=== PATIENT | male | born 1960 | race Caucasian/White ===

== ENCOUNTER 2017-06-26 20:57 | Emergency (ER) | payer MEDICARE, OTHER ==
--- NOTE | 2017-06-26 22:33 | RAD ---
AP VIEW OF THE CHEST: 06/26/17 INDICATION: Intermittent chest pain. COMPARISON: Prior exam dated September 14, 2009. FINDINGS: The lungs are clear. There is a new endovascular stent in the region of the SVC. There is an ACDF carol te at C6-7. Heart size is normal. The left costophrenic angle is excluded. No pneumothorax is evident . IMPRESSION: 1. No acute abnormality. 2. Limitation to the exam as above. POS: [facility]
[2017-06-26 23:00] LABS: #Basophils 0.1 thou/uL (0.0-0.2); #Eosinphils 0.1 thou/uL (0.0-0.7); #Lymphocytes 1.8 thou/uL (1.20-3.40); #Neutrophils 5.6 thou/uL (1.40-6.50); %Eosinophils 1.2 % (0.0-10.0); %Neutrophils 64.8 % (42.0-75.0); Hemoglobin 18.9 g/dL (14.0-18.0); Mean Corpuscular HGB CONC 32.9 g/dL (32.0-36.0); Mean Corpuscular Hemoglobin 31.4 pg (27.0-31.0); Mean Corpuscular Volume 95.5 fl (80.0-94.0); Mean Platelet Volume 7.7 fL (7.4-10.4); Platelet Count 220 thou/uL (130-400); RBC Distribution Width 13.8 % (11.5-14.5); Red Blood Cell (RBC) Count 6.03 mill/uL (4.70-6.10); White Blood Cell (WBC) Count 8.6 thou/uL (4.8-10.8)
[2017-06-26 23:06] LABS: Prothrombin Time 50.3 SEC (12.0-14.7)
[2017-06-26 23:14] LABS: INR-International Normal Ratio 5.1
[2017-06-26 23:23] LABS: ALT (SGPT) 27 U/L (8-55); AST (SGOT) 29 U/L (5-34); Albumin 4.3 g/dL (3.5-5.0); Alkaline Phosphatase 84 U/L (40-150); Anion Gap 14 mmol/L (10-20); BUN (Urea Nitrogen) 9 mg/dL (8.4-25.7); Bilirubin, Total 0.5 mg/dL (0.2-1.2); Calc. Creatinine Clearance 0 mL/min (70-130); Calcium 9.4 mg/dL (7.8-10.44); Carbon Dioxide 23 mmol/L (22-29); Chloride 103 mmol/L (98-107); Estimated GFR-MDRD Greater than 90; Globulin 3.2 g/dL (2.4-3.5); Glucose 103 mg/dL (70-105); Lipase 14 U/L (8-78); Potassium 4.6 mmol/L (3.5-5.1); Protein, Total 7.5 g/dL (6.0-8.3); Sodium 135 mmol/L (136-145)
[2017-06-26 23:24] LABS: CKMB 1.2 ng/mL (0-6.6); Troponin I Less than 0.010 ng/mL (< 0.028)
[2017-06-26 23:26] LABS: D-Dimer Test Less than 0.27 *mcg/mL (0.27-0.43)
== END 2017-06-27 01:15 | disposition home or self-care (01) ==
LOC: ERS 20:57
DX: R07.89 Other chest pain (principal); I10 Essential (primary) hypertension; F32.9 Major depressive disorder, single episode, unspecified; Z87.891 Personal history of nicotine dependence; Z86.73 Personal history of transient ischemic attack (TIA), and cerebral infarction without residual deficits; Z79.01 Long term (current) use of anticoagulants; Z79.899 Other long term (current) drug therapy
CPT/HCPCS: 36415; 71045; 80053; 82553; 83690; 83880; 84443; 84484; 85025; 85379; 85610; 93005; 96360; 96361

== ENCOUNTER 2017-08-19 09:09 | Outpatient (CLI) | payer MEDICARE, MEDICAID ==
--- NOTE | 2017-08-19 12:30 | ULT ---
BILATERAL UPPER EXTREMITY VASCULAR ULTRASOUND FOR DIALYSIS ACCESS MAPPING: Date: 08-19-17 Comparison: None. History: 56-year-old male in need of dialysis access, venous insufficiency, SVC syndrome. Technique: Multiplanar grayscale sonographic imaging of the vascular structures of the bilateral uppe r extremities obtained as described above. Images include color flow and spectral analysis. FINDINGS: Bilateral internal jugular veins, subclavian veins, and axillary veins are patent. The cephalic and basilic vein demonstrate patency bilaterally. RIGHT UPPER EXTREMITY BRACHIAL ARTERY: 5.4 mm RADIAL ARTERY: 2.9 mm ULNAR ARTERY: 2.8 mm CEPHALIC VEIN Proximal Arm: 2.0 mm Mid Arm: 2.2 mm Distal Arm: 2.0 mm Antecubital Fossa: 1.3 mm Proximal Forearm: 2.2 mm Mid Forearm: 1.7 mm Distal Forearm: 1.9 mm BASILIC VEIN Proximal Arm: 5.1 mm Mid Arm: 4.6 mm Distal Arm: 5.4 mm Antecubital Fossa: 2.1 mm Proximal Forearm: 1.6 mm Mid Forearm: 1.0 mm Distal Forearm: 1.0 mm LEFT UPPER EXTREMITY BRACHIAL ARTERY: 5.1 mm RADIAL ARTERY: 2.6 mm ULNAR ARTERY: 1.6 mm CEPHALIC VEIN Proximal Arm: 4.6 mm Mid Arm: 1.1 mm Distal Arm: 2.0 mm Antecubital Fossa: 1.2 mm Proximal Forearm: 1.7 mm Mid Forearm: 1.5 mm Distal Forearm: 0.9 mm BASILIC VEIN Proximal Arm: 4.7 mm Mid Arm: 1.7 mm Distal Arm: 4.0 mm Antecubital Fossa: 4.0 mm Proximal Forearm: 3.6 mm Mid Forearm: 2.4 mm Distal Forearm: 2.1 mm IMPRESSION: Vascular ultrasound for vein mapping as above. POS: [facility]
== END 2017-08-19 09:10 | disposition home or self-care (01) ==
LOC: ULT 09:09
PROVIDERS: ATTEND Surgery
DX: Z01.818 Encounter for other preprocedural examination (principal); I87.2 Venous insufficiency (chronic) (peripheral)
CPT/HCPCS: 93970; G0365

== ENCOUNTER → 2017-08-27 | Day surgery (SDC) | payer MEDICARE, MEDICAID ==
--- NOTE | 2017-08-27 12:48 | SPC ---
RIGHT EXTREMITY VENOGRAM: HISTORY: The patient has known SVC syndrome. The patient is scheduled for MediPort catheter placement. Evalu ation is requested to assess the patency of the superior vena cava, status post stent placement. FINDINGS: Technically successful right upper extremity venogram. The brachial vein was cannulated. Contrast o pacifies a normal-appearing brachial vein, axillary vein, and subclavian vein. There is mild stenosi s of the right brachiocephalic vein. No evidence of collaterals. Contrast opacifies and flows brisk ly through the stented superior vena cava. No significant stenosis. IMPRESSION: 1. Normal right upper extremity venogram. There is mild narrowing of the right brachiocephalic vein without collateral flow. 2. Superior vena cava that has been stented is patent. EXPOSURE: 1.1 minutes. [id number] mGy*^cm2. POS: [facility]
== END ==
LOC: RAD 09:00
PROVIDERS: ATTEND Surgery
DX: I87.1 Compression of vein (principal)
CPT/HCPCS: 36005; 76942

== ENCOUNTER 2017-09-08 08:11 | Day surgery (SDC) | payer MEDICARE, MEDICAID ==
[2017-09-07 15:15] VITALS: BMI 32.5
[2017-09-08 10:18] LABS: #Basophils 0.1 thou/uL (0.0-0.2); #Eosinphils 0.2 thou/uL (0.0-0.7); #Neutrophils 4.9 thou/uL (1.40-6.50); %Basophils 1.2 % (0.0-1.0); %Eosinophils 2.9 % (0.0-10.0); %Monocytes 12.1 % (0.0-10.0); %Neutrophils 59.7 % (42.0-75.0); Hemoglobin 18.4 g/dL (14.0-18.0); Mean Corpuscular HGB CONC 33.3 g/dL (32.0-36.0); Mean Corpuscular Hemoglobin 32.2 pg (27.0-31.0); Mean Corpuscular Volume 96.7 fl (80.0-94.0); Mean Platelet Volume 7.4 fL (7.4-10.4); Platelet Count 203 thou/uL (130-400); RBC Distribution Width 11.7 % (11.5-14.5); Red Blood Cell (RBC) Count 5.71 mill/uL (4.70-6.10); White Blood Cell (WBC) Count 8.3 thou/uL (4.8-10.8)
[2017-09-08 10:37] LABS: Anion Gap 12 mmol/L (10-20); BUN (Urea Nitrogen) 4 mg/dL (8.4-25.7); Calc. Creatinine Clearance 116 mL/min (70-130); Calcium 8.9 mg/dL (7.8-10.44); Carbon Dioxide 23 mmol/L (22-29); Chloride 106 mmol/L (98-107); Estimated GFR-MDRD 78; Glucose 78 mg/dL (70-105); Potassium 4.3 mmol/L (3.5-5.1); Sodium 137 mmol/L (136-145)
[2017-09-08] MEDS ORDERED: Clindamycin/D5W 900 mg/50 ml Premix Bag ONE (11:04)
[2017-09-08] MEDS ORDERED: Levofloxacin 500 mg/D5W 100 ml Premix Bag ONE (11:04)
[2017-09-08] MEDS ORDERED: Bupivacaine/Epinephrine 0.25% 30 ML VIAL ONE (11:13)
[2017-09-08] MEDS ORDERED: Lidocaine 2% 10 ML INJ ONE (11:13)
[2017-09-08] MEDS ORDERED: Midazolam HCl 2 mg/2 ml Vial ONE (11:14)
[2017-09-08] MEDS ORDERED: Fentanyl 100 MCG/2 ML VIAL ONE (11:14)
[2017-09-08] MEDS ORDERED: PROPOFOL 200 MG/20 ML VIAL ONE (11:21)
[2017-09-08] MEDS ORDERED: ePHEDrine/0.9% NaCl/PF SYRINGE 50 mg/10 ml ONE (11:21)
[2017-09-08] MEDS ORDERED: Lidocaine 1% PF 5 ML VIAL ONE (11:21)
--- NOTE | 2017-09-08 13:55 | RAD ---
PORTABLE CHEST: HISTORY: Mediport placement. COMPARISON: 06/26/2017 FINDINGS: Heart size is enlarged. A stent, which appears to be in the superior vena cava, is noted. A right-s ided Mediport catheter has been placed. The catheter tip overlies the stent. No signs of pneumothor ax. IMPRESSION: 1. Right-sided Mediport catheter overlying the superior vena cava. No signs of pneumothorax. 2. Cardiomegaly. POS: [facility]
--- NOTE | 2017-09-08 15:42 | RAD ---
CHEST ONE VIEW: 09/08/17 HISTORY: Mediport placement. Chest pain. COMPARISON: Earlier exam on the same date. FINDINGS: Cardiac silhouette magnified by projection. Pulmonary vasculature unremarkable. Mediastinum midline w ith aortic calcification, superior vena cava stent and a right internal jugular Mediport. Tip overlie s the superior vena cava. No evidence of pneumothorax. IMPRESSION: Right internal jugular Mediport is in good radiographic position. POS: [facility]
--- NOTE | 2017-09-16 09:46 | PDOC.OP ---
Operative Note - Operative Note Operative Note: PROCEDURE: Right internal jugular MediPort placement with fluoroscopic guidance SURGEON: Shiv Romero M.D. DATE OF PROCEDURE: 09/08/2017 PREOPERATIVE DIAGNOSIS: Inadequate peripheral IV access POSTOPERATIVE DIAGNOSIS: Inadequate peripheral IV access HISTORY: Patient with chronic pain who requires frequent sedation for procedures. He has had a Mediport for this purpose almost 20 years. His most recent Mediport was removed due to superior vena cava syndrome which has been treated with stents. His primary care doctor has requested replacement of the Mediport. He understands that he is at increased risk for thrombotic complications and recurrent superior vena cava syndrome. Preoperative venogram revealed patency of the superior vena cava but a possible slight stricture near the brachiocephalic junction on the right so recommendation was made to place the Mediport in the right internal jugular position. OPERATIVE PROCEDURE IN DETAIL: After informed consent was obtained and appropriate preoperative antibiotics were administered, the patient was taken to the operating room and placed in supine position and monitored anesthesia care was administered. The patient was then placed in Trendelenburg position and the internal jugular vein accessed easily under ultrasound guidance on the first attempt with excellent flow of dark venous non-pulsatile blood. A wire threaded easily and was confirmed to be in the superior vena cava by fluoroscopy. Local anesthesia was infused and the skin incised around the wire. Local anesthesia was infused to the skin and subcutaneous tissues of the right chest and a subcutaneous pocket developed inferiorly. A Mediport was obtained and confirmed to fit in the subcutaneous pocket. This was secured inferiorly to the pectoralis fascia with a Prolene suture, which was clamped, but not tied. The Mediport tubing was then clamped distally and tunneled from the chest incision to the right IJ access site. The dilator and sheath were then placed over the wire and the dilator and wire removed leaving the sheath in place. The clamped MediPort tubing was tunneled through the sheath, which was then split and removed leaving the MediPort tubing in place. The tubing was adjusted until the tip was confirmed by fluoroscopy to be in the superior vena cava just above the atrium. The tubing was clamped at the skin level and cut and the tubing secured to the port, which was then placed in the subcutaneous pocket. The previously placed suture was secured and two additional sutures were placed to fix the port in place within the pocket. The port was aspirated with the Dillon needle and had excellent flow of dark venous non-pulsatile blood and easily flushed without resistance. The subcutaneous tissues at both incisions were closed with a running Monocryl suture, following which the skin was closed with a running subcuticular Monocryl suture. Dermabond dressings were placed and the hub was again accessed through the skin and confirmed to easily aspirate and easily flush. The course of the catheter was confirmed by fluoroscopy to be smooth with the tip appropriately located in the superior vena cava. The patient was taken her back to the day stay unit in good condition. Estimated blood loss was minimal. There were no complications. There were no specimens.
== END 2017-09-08 15:38 | disposition home or self-care (01) ==
LOC: SDC 08:11
PROVIDERS: ATTEND Surgery
PROC: 05HM33Z Insertion of Infusion Device into Right Internal Jugular Vein, Percutaneous Approach (ICD-10-PCS; principal; 2017-09-08)
DX: Z45.2 Encounter for adjustment and management of vascular access device (principal); I87.1 Compression of vein; I10 Essential (primary) hypertension; E05.90 Thyrotoxicosis, unspecified without thyrotoxic crisis or storm; Z88.8 Allergy status to other drugs, medicaments and biological substances; Z91.011 Allergy to milk products; Z87.891 Personal history of nicotine dependence; Z79.899 Other long term (current) drug therapy
CPT/HCPCS: 36561; 71045; 76001; 80048; 85025; C1788; 36415; J1642; J1956; J2001; J2250; J2704; J3010; J3490

== ENCOUNTER 2018-04-05 08:08 | Outpatient (CLI) | payer MEDICARE, MEDICAID ==
[2018-04-05] MEDS ORDERED: Sodium Chloride 0.9% 10 ML ONE (08:59)
--- NOTE | 2018-04-05 11:30 | RAD ---
FLUOROSCOPIC GUIDED RIGHT INTERNAL JUGULAR VEIN MEDIPORT CHECK: Date: 04-05-18 History: Unable to aspirate from Mediport. FINDINGS: A [place] needle was utilized to access the Mediport prior to this procedure. The catheter was easily a spirated and flushed with saline. Total volume of approximately 12 ml of Omnipaque 300 contrast was t hen injected through the Mediport catheter. There is no extravasation of contrast seen along the Medi port catheter or surrounding the Mediport. Contrast easily flows from the tip of the catheter into th e SVC and subsequently in the right atrium. Vascular stents are seen within the SVC and the Mediport catheter extends into the stents to the level of the distal SVC. The catheter was then flushed with h epatized saline. Needle was removed. Patient tolerated the procedure well and without immediate compl ication. IMPRESSION: Right internal jugular vein Mediport catheter in place. Tip of the catheter overlies the distal SVC, and there are stents present within the SVC. The Mediport catheter is patent, and there is no extravasation of contrast along the course of the ca theter. Contrast freely flows from the tip of the catheter. The catheter is also able to be flushed a nd aspirated easily. POS: [facility]
== END 2018-04-05 08:09 | disposition home or self-care (01) ==
LOC: RAD 08:08
PROVIDERS: ATTEND Surgery
DX: I87.2 Venous insufficiency (chronic) (peripheral) (principal)
CPT/HCPCS: 36598; J1642

== ENCOUNTER 2018-04-13 14:24 | Emergency (ER) | payer MEDICARE, OTHER ==
[2018-04-13] MEDS ORDERED: cloNIDine 0.1 MG TAB ONE (14:50)
== END 2018-04-13 17:52 | disposition home or self-care (01) ==
LOC: ERS 14:24
DX: F11.23 Opioid dependence with withdrawal (principal); I10 Essential (primary) hypertension; F32.9 Major depressive disorder, single episode, unspecified; Z87.891 Personal history of nicotine dependence; Z86.73 Personal history of transient ischemic attack (TIA), and cerebral infarction without residual deficits
CPT/HCPCS: 99283

== ENCOUNTER 2020-01-05 13:19 | Outpatient (CLI) | payer MEDICARE, MEDICAID ==
--- NOTE | 2020-01-05 15:20 | CT ---
CT ABDOMEN AND PELVIS WITH IV CONTRAST: HISTORY: There is generalized abdominal pain with weight gain of 40 pounds. Multiple back surgeries. FINDINGS: The lung bases are clear. There is fatty infiltration of the liver. No hepatic mass or abnormal shauna iary ductal dilatation is seen. The patient is post cholecystectomy. The spleen, pancreas, and adre nal glands are normal. There are bilateral nonobstructing renal calculi. The largest of these measu res 5 mm in the right kidney and 5 mm in the left kidney. No free air, free fluid, or lymphadenopathy is seen in the abdomen or pelvis. The small bowel loops are not abnormally dilated. There is a stent in the inferior vena cava. Degenerative changes in the spine. An abnormal appendix is not seen. The patient is likely postop appendectomy. Clinical annabel elation is recommended. IMPRESSION: 1. Fatty liver. 2. Bilateral nonobstructing renal calculi. POS: [facility]
== END 2020-01-05 13:20 | disposition home or self-care (01) ==
LOC: BICCT 13:19 → CT 13:20
PROVIDERS: ATTEND Family Medicine
DX: R10.84 Generalized abdominal pain (principal); K76.0 Fatty (change of) liver, not elsewhere classified; N20.0 Calculus of kidney
CPT/HCPCS: 74177; 82565

== ENCOUNTER 2020-10-01 11:46 | Emergency (ER) | payer MEDICARE, MEDICAID | END 2020-10-01 14:10 | disposition home or self-care (01) | LOC: ERS 11:46 | DX: M54.5 Low back pain (principal); I10 Essential (primary) hypertension; Z86.73 Personal history of transient ischemic attack (TIA), and cerebral infarction without residual deficits; Z87.891 Personal history of nicotine dependence | CPT/HCPCS: 99281 ==

== ENCOUNTER 2021-02-04 15:12 | Inpatient (IN) | payer MEDICARE, MEDICAID ==
[~2021-02-04 15:12] MED LIST: FLU VACC QS2021-22(6MOS UP)/PF 60 MCG/0.5 ML SYRINGE IM ONE; Prevnar 13-Val Conj/PF 0.5 ML SYRINGE IM ONE
[2021-02-04 16:26] LABS: Bacteria/HPF None Seen HPF (None Seen); Bilirubin Negative (Negative); Blood, Urine Trace (Negative); Clarity Clear (Clear); Glucose, Urine (Dipstick) Normal (Negative); Ketone, Urine Trace mg/dL (Negative); Leukocyte Negative Leu/uL (Negative); Nitrite Negative (Negative); Protein, Urine (Dipstick) 30 mg/dL (Neg-Trace); RBC/HPF 0-3 HPF (0-3); Specific Gravity, Urine 1.028 (1.002-1.036); Squamous Epithelial 0-3 HPF (0-3); Urobilinogen 6 mg/dL (Less than 2); WBC/HPF 0-3 HPF (0-3); pH, Urine 5.5 (5.0-9.0)
[2021-02-04] MEDS ORDERED: Acetaminophen 325 MG TAB PO PRN (16:37)
[2021-02-04] MEDS ORDERED: Morphine 2 MG/ML VIAL SLOW IVP PRN (16:39)
[2021-02-04] MEDS ORDERED: Cefepime 2 GM VIAL ONE (16:50)
[2021-02-04] MEDS ORDERED: VANCOMYCIN 2 GRAM/400 ML BAG 2 GM in Premix Bag 1 BAG IVPB SCH (17:00)
[2021-02-04 18:12] LABS: #Lymphocytes 1.8 thou/uL (1.20-3.40); #Monocytes 1.6 thou/uL (0.11-0.59); #Neutrophils 13.2 thou/uL (1.40-6.50); %Basophils 0.1 % (0.0-1.0); %Eosinophils 0.2 % (0.0-10.0); %Lymphocytes 10.6 % (21.0-51.0); %Monocytes 9.6 % (0.0-10.0); %Neutrophils 79.6 % (42.0-75.0); Hemoglobin 14.7 g/dL (14.0-18.0); Mean Corpuscular HGB CONC 33.4 g/dL (32.0-36.0); Mean Corpuscular Hemoglobin 32.2 pg (27.0-31.0); Mean Corpuscular Volume 96.4 fL (78.0-98.0); Mean Platelet Volume 7.5 fL (7.4-10.4); Platelet Count 392 thou/uL (130-400); RBC Distribution Width 12.4 % (11.5-14.5); Red Blood Cell (RBC) Count 4.56 mill/uL (4.70-6.10); White Blood Cell (WBC) Count 16.6 thou/uL (4.8-10.8)
[2021-02-04 18:39] LABS: ALT (SGPT) 24 U/L (8-55); AST (SGOT) 20 U/L (5-34); Albumin 3.8 g/dL (3.4-4.8); Alkaline Phosphatase 91 U/L (40-110); Anion Gap 13 mmol/L (10-20); BUN (Urea Nitrogen) 16 mg/dL (8.4-25.7); Calc. Creatinine Clearance 0 mL/min (70-130); Carbon Dioxide 28 mmol/L (23-31); Chloride 101 mmol/L (98-107); Globulin 3.7 g/dL (2.4-3.5); Glucose 101 mg/dL (80-115); Potassium 3.5 mmol/L (3.5-5.1); Protein, Total 7.5 g/dL (5.8-8.1); Sodium 138 mmol/L (136-145)
[2021-02-04 19:10] LABS: INR-International Normal Ratio 1.2; PTT 38.2 sec (22.9-36.1)
[2021-02-04 19:51] VITALS: BMI 31.5
[2021-02-04] MEDS ORDERED: Vancomycin 1 GM in Premix Bag 1 BAG IVPB SCH (21:00)
[2021-02-04] MEDS: Gabapentin 300 MG CAP PO SCH (22:28)
[2021-02-04] MEDS: Ondansetron PF 4 MG/2 ML Vial IVP PRN (22:30)
[2021-02-04] MEDS: Morphine 4 MG/ML VIAL SLOW IVP PRN (22:32)
[2021-02-05] MEDS: Cefepime 2 GM in Sodium Chloride 0.9% 100 ML IVPB SCH ×3 (00:52→18:37)
[2021-02-05] MEDS: Morphine 4 MG/ML VIAL SLOW IVP PRN ×5 (03:13→23:17)
[2021-02-05 07:00] LABS: Hemoglobin 14.2 g/dL (14.0-18.0); Mean Corpuscular HGB CONC 32.7 g/dL (32.0-36.0); Mean Corpuscular Hemoglobin 31.5 pg (27.0-31.0); Mean Corpuscular Volume 96.3 fL (78.0-98.0); Mean Platelet Volume 7.5 fL (7.4-10.4); Platelet Count 356 thou/uL (130-400); RBC Distribution Width 12.2 % (11.5-14.5); White Blood Cell (WBC) Count 15.1 thou/uL (4.8-10.8)
[2021-02-05 07:10] LABS: Anion Gap 13 mmol/L (10-20); BUN (Urea Nitrogen) 16 mg/dL (8.4-25.7); Calc. Creatinine Clearance 114 mL/min (70-130); Calcium 9.7 mg/dL (7.8-10.44); Carbon Dioxide 25 mmol/L (23-31); Chloride 105 mmol/L (98-107); Glucose 95 mg/dL (80-115); Potassium 4.1 mmol/L (3.5-5.1); Sodium 139 mmol/L (136-145)
[2021-02-05] MEDS: clonazePAM 0.5 MG TAB PO SCH ×3 (08:33→20:35)
[2021-02-05] MEDS: Gabapentin 300 MG CAP PO SCH ×3 (08:33→20:35)
[2021-02-05 08:46] LABS: Band 9 % (5-11); Lymphocytes 8 % (21-51); MDiff Complete? YES; Monocytes 16 % (0-10); Neutrophil 65 % (42-75); Platelet Morphology Comment Appears Adequate; RBC Morphology Normal; Reactive Lymphocytes 2 % (0-10)
[2021-02-05] MEDS ORDERED: Enoxaparin Sodium 40 MG/0.4 ML SYRINGE SC SCH (09:00)
[2021-02-05] MEDS: Vancomycin 1.5 GRAM/300 ML BAG 1.5 GM in Premix Bag 1 BAG IVPB SCH ×2 (09:39→20:35)
[2021-02-05 11:47] LABS: SARS-CoV-2 PCR by NAA Not Detected (NotDetected)
[2021-02-06] MEDS: Cefepime 2 GM in Sodium Chloride 0.9% 100 ML IVPB SCH ×3 (01:39→16:07)
[2021-02-06] MEDS: Morphine 4 MG/ML VIAL SLOW IVP PRN ×3 (05:07→15:56)
[2021-02-06 07:16] LABS: Vancomycin, Trough 13.9 ug/mL
[2021-02-06] MEDS: VANCOMYCIN 1.75 GM/350 ML BAG 1.75 GM in Premix Bag 1 BAG IVPB SCH ×2 (08:35→20:06)
[2021-02-06] MEDS: Gabapentin 300 MG CAP PO SCH ×3 (08:35→20:07)
[2021-02-06] MEDS: clonazePAM 0.5 MG TAB PO SCH ×3 (08:35→20:07)
[2021-02-06] MEDS ORDERED: Morphine 4 MG/ML VIAL SLOW IVP PRN (10:08)
[2021-02-07] MEDS: Morphine 4 MG/ML VIAL SLOW IVP PRN ×5 (01:43→23:34)
[2021-02-07] MEDS: Cefepime 2 GM in Sodium Chloride 0.9% 100 ML IVPB SCH ×3 (01:43→17:23)
[2021-02-07 08:10] LABS: #Eosinphils 0.2 thou/uL (0.0-0.7); #Lymphocytes 1.5 thou/uL (1.20-3.40); #Monocytes 1.4 thou/uL (0.11-0.59); #Neutrophils 7.1 thou/uL (1.40-6.50); %Basophils 0.4 % (0.0-1.0); %Eosinophils 2.2 % (0.0-10.0); %Lymphocytes 14.4 % (21.0-51.0); %Monocytes 13.3 % (0.0-10.0); %Neutrophils 69.7 % (42.0-75.0); Hemoglobin 14.7 g/dL (14.0-18.0); Mean Corpuscular Hemoglobin 30.1 pg (27.0-31.0); Mean Corpuscular Volume 97.2 fL (78.0-98.0); Mean Platelet Volume 7.1 fL (7.4-10.4); Platelet Count 380 thou/uL (130-400); RBC Distribution Width 12.2 % (11.5-14.5); Red Blood Cell (RBC) Count 4.88 mill/uL (4.70-6.10); White Blood Cell (WBC) Count 10.1 thou/uL (4.8-10.8)
[2021-02-07] MEDS ORDERED: Sodium Chloride 0.9% 10 ML ONE (08:15)
[2021-02-07] MEDS ORDERED: Lidocaine 1% PF 5 ML VIAL ONE (08:15)
[2021-02-07] MEDS ORDERED: Fentanyl 100 MCG/2 ML VIAL ONE (08:15)
[2021-02-07] MEDS ORDERED: Sodium Bicarbonate 2.5 MEQ/5 ML VIAL ONE (08:15)
[2021-02-07] MEDS: Gabapentin 300 MG CAP PO SCH ×3 (08:24→20:32)
[2021-02-07] MEDS: clonazePAM 0.5 MG TAB PO SCH ×3 (08:24→20:32)
[2021-02-07 08:31] LABS: Anion Gap 12 mmol/L (10-20); BUN (Urea Nitrogen) 15 mg/dL (8.4-25.7); Calc. Creatinine Clearance 126 mL/min (70-130); Calcium 9.6 mg/dL (7.8-10.44); Carbon Dioxide 26 mmol/L (23-31); Chloride 104 mmol/L (98-107); Glucose 83 mg/dL (80-115); Potassium 3.8 mmol/L (3.5-5.1); Sodium 138 mmol/L (136-145)
[2021-02-07] MEDS: VANCOMYCIN 1.75 GM/350 ML BAG 1.75 GM in Premix Bag 1 BAG IVPB SCH ×2 (10:15→20:31)
[2021-02-07] MEDS ORDERED: Bisacodyl 10 MG SUPP PR PRN ×2 (16:51→16:54)
[2021-02-07] MEDS: Carvedilol 3.125 MG TAB PO SCH (19:00)
[2021-02-07 19:47] LABS: Vancomycin, Trough 21.6 ug/mL
[2021-02-07] MEDS: Polyethylene Glycol 3350 17 GM Packet PO SCH (20:33)
[2021-02-07] MEDS ORDERED: Polyethylene Glycol 3350 17 GM Packet PO SCH (21:00)
[2021-02-08] MEDS: Cefepime 2 GM in Sodium Chloride 0.9% 100 ML IVPB SCH ×3 (01:02→16:05)
[2021-02-08] MEDS: Morphine 4 MG/ML VIAL SLOW IVP PRN ×4 (05:15→21:14)
[2021-02-08] MEDS: Levothyroxine Sodium 75 MCG TAB PO SCH (05:25)
[2021-02-08] MEDS: Carvedilol 3.125 MG TAB PO SCH ×2 (08:08→17:02)
[2021-02-08] MEDS: Saccharomyces boulardii 250 MG CAP PO SCH (08:08)
[2021-02-08] MEDS: Gabapentin 300 MG CAP PO SCH ×3 (08:09→20:15)
[2021-02-08] MEDS: clonazePAM 0.5 MG TAB PO SCH ×3 (08:09→20:16)
[2021-02-08] MEDS: Vancomycin 1.5 GRAM/300 ML BAG 1.5 GM in Premix Bag 1 BAG IVPB SCH ×2 (08:10→20:12)
[2021-02-08 09:11] LABS: Hemoglobin 12.9 g/dL (14.0-18.0); Mean Corpuscular HGB CONC 33.2 g/dL (32.0-36.0); Mean Corpuscular Hemoglobin 32.3 pg (27.0-31.0); Mean Corpuscular Volume 97.3 fL (78.0-98.0); Mean Platelet Volume 7.2 fL (7.4-10.4); Platelet Count 341 thou/uL (130-400); RBC Distribution Width 12.2 % (11.5-14.5)
[2021-02-08 09:31] LABS: Anion Gap 11 mmol/L (10-20); BUN (Urea Nitrogen) 13 mg/dL (8.4-25.7); Calc. Creatinine Clearance 134 mL/min (70-130); Carbon Dioxide 23 mmol/L (23-31); Chloride 105 mmol/L (98-107); Glucose 123 mg/dL (80-115); Potassium 3.6 mmol/L (3.5-5.1); Sodium 135 mmol/L (136-145)
[2021-02-08 13:03] LABS: Band 10 % (5-11); Lymphocytes 6 % (21-51); MDiff Complete? YES; Monocytes 13 % (0-10); Neutrophil 63 % (42-75); Platelet Morphology Comment Appears Adequate; RBC Morphology Normal; Reactive Lymphocytes 8 % (0-10)
[2021-02-08] MEDS: Polyethylene Glycol 3350 17 GM Packet PO SCH (20:14)
[2021-02-08] MEDS: Ondansetron PF 4 MG/2 ML Vial IVP PRN (21:09)
[2021-02-09] MEDS: Cefepime 2 GM in Sodium Chloride 0.9% 100 ML IVPB SCH ×2 (01:47→08:37)
[2021-02-09] MEDS: Morphine 4 MG/ML VIAL SLOW IVP PRN ×4 (01:48→19:38)
[2021-02-09] MEDS: Levothyroxine Sodium 75 MCG TAB PO SCH (06:06)
[2021-02-09 06:59] LABS: INR-International Normal Ratio 1.1; Prothrombin Time 14.5 sec (12.0-14.7)
[2021-02-09 07:10] LABS: Anion Gap 12 mmol/L (10-20); BUN (Urea Nitrogen) 12 mg/dL (8.4-25.7); Calc. Creatinine Clearance 136 mL/min (70-130); Carbon Dioxide 22 mmol/L (23-31); Chloride 104 mmol/L (98-107); Glucose 109 mg/dL (80-115); Potassium 3.6 mmol/L (3.5-5.1); Sodium 134 mmol/L (136-145)
[2021-02-09 08:13] LABS: Hemoglobin 12.5 g/dL (14.0-18.0); Mean Corpuscular HGB CONC 31.1 g/dL (32.0-36.0); Mean Corpuscular Hemoglobin 30.4 pg (27.0-31.0); Mean Corpuscular Volume 97.7 fL (78.0-98.0); Mean Platelet Volume 7.7 fL (7.4-10.4); Platelet Count 328 thou/uL (130-400); RBC Distribution Width 12.1 % (11.5-14.5); Red Blood Cell (RBC) Count 4.12 mill/uL (4.70-6.10); White Blood Cell (WBC) Count 7.4 thou/uL (4.8-10.8)
[2021-02-09 08:27] LABS: Band 1 % (5-11); Eosinophils 5 % (0-10); Lymphocytes 18 % (21-51); MDiff Complete? YES; Monocytes 18 % (0-10); Neutrophil 57 % (42-75); Platelet Morphology Comment Appears Adequate; Vacuoles SLIGHT
[2021-02-09] MEDS: clonazePAM 0.5 MG TAB PO SCH ×3 (08:36→19:39)
[2021-02-09] MEDS: Saccharomyces boulardii 250 MG CAP PO SCH (08:36)
[2021-02-09] MEDS: Gabapentin 300 MG CAP PO SCH ×3 (08:37→19:39)
[2021-02-09] MEDS: Vancomycin 1.5 GRAM/300 ML BAG 1.5 GM in Premix Bag 1 BAG IVPB SCH ×2 (08:50→21:15)
[2021-02-09] MEDS ORDERED: Carvedilol 6.25 MG TAB PO SCH (09:00)
[2021-02-09] MEDS: Carvedilol 3.125 MG TAB PO SCH ×2 (15:00→18:14)
[2021-02-09] MEDS: Losartan 25 MG TAB PO SCH (15:02)
[2021-02-09] MEDS: Polyethylene Glycol 3350 17 GM Packet PO SCH (19:40)
[2021-02-09 19:46] LABS: Vancomycin, Trough 15.2 ug/mL
[2021-02-10] MEDS: Morphine 4 MG/ML VIAL SLOW IVP PRN ×3 (04:38→23:03)
[2021-02-10] MEDS: Levothyroxine Sodium 75 MCG TAB PO SCH (04:40)
[2021-02-10 07:18] LABS: Hemoglobin 12.8 g/dL (14.0-18.0); Mean Corpuscular HGB CONC 33.5 g/dL (32.0-36.0); Mean Corpuscular Hemoglobin 32.7 pg (27.0-31.0); Mean Corpuscular Volume 97.8 fL (78.0-98.0); Mean Platelet Volume 9.4 fL (7.4-10.4); Platelet Count 239 thou/uL (130-400); RBC Distribution Width 12.1 % (11.5-14.5); Red Blood Cell (RBC) Count 3.92 mill/uL (4.70-6.10); White Blood Cell (WBC) Count 7.9 thou/uL (4.8-10.8)
[2021-02-10 07:28] LABS: Anion Gap 12 mmol/L (10-20); BUN (Urea Nitrogen) 12 mg/dL (8.4-25.7); Calc. Creatinine Clearance 142 mL/min (70-130); Calcium 9.2 mg/dL (7.8-10.44); Carbon Dioxide 22 mmol/L (23-31); Chloride 104 mmol/L (98-107); Glucose 96 mg/dL (80-115); INR-International Normal Ratio 1.1; Prothrombin Time 14.1 sec (12.0-14.7); Sodium 134 mmol/L (136-145)
[2021-02-10] MEDS: Carvedilol 3.125 MG TAB PO SCH ×2 (08:03→16:56)
[2021-02-10] MEDS: Vancomycin 1.5 GRAM/300 ML BAG 1.5 GM in Premix Bag 1 BAG IVPB SCH ×2 (08:08→21:09)
[2021-02-10 08:11] LABS: Band 1 % (5-11); Eosinophils 4 % (0-10); Lymphocytes 20 % (21-51); MDiff Complete? YES; Monocytes 16 % (0-10); Neutrophil 59 % (42-75); Platelet Morphology Comment Appears Adequate; RBC Morphology Normal
[2021-02-10] MEDS: Gabapentin 300 MG CAP PO SCH ×3 (09:09→21:08)
[2021-02-10] MEDS: Saccharomyces boulardii 250 MG CAP PO SCH (09:09)
[2021-02-10] MEDS: clonazePAM 0.5 MG TAB PO SCH ×3 (09:10→21:09)
[2021-02-10] MEDS: Losartan 25 MG TAB PO SCH (09:11)
[2021-02-10] MEDS ORDERED: Lidocaine 1% w/Epinephrine 1:100K 20 ML VIAL IJ SCH (17:30)
[2021-02-10] MEDS: Warfarin Sodium 2 MG TAB PO SCH (17:51)
[2021-02-10] MEDS: Polyethylene Glycol 3350 17 GM Packet PO SCH (21:09)
[2021-02-11] MEDS: Levothyroxine Sodium 75 MCG TAB PO SCH (05:39)
[2021-02-11 07:47] LABS: Hemoglobin 13.3 g/dL (14.0-18.0); Mean Corpuscular HGB CONC 33.7 g/dL (32.0-36.0); Mean Corpuscular Hemoglobin 32.5 pg (27.0-31.0); Mean Corpuscular Volume 96.3 fL (78.0-98.0); Mean Platelet Volume 7.9 fL (7.4-10.4); Platelet Count 350 thou/uL (130-400); Red Blood Cell (RBC) Count 4.11 mill/uL (4.70-6.10); White Blood Cell (WBC) Count 7.9 thou/uL (4.8-10.8)
[2021-02-11 07:55] LABS: INR-International Normal Ratio 1.1; Prothrombin Time 14.3 sec (12.0-14.7)
[2021-02-11 07:58] LABS: Anion Gap 14 mmol/L (10-20); BUN (Urea Nitrogen) 11 mg/dL (8.4-25.7); Calc. Creatinine Clearance 142 mL/min (70-130); Calcium 9.1 mg/dL (7.8-10.44); Carbon Dioxide 23 mmol/L (23-31); Chloride 103 mmol/L (98-107); Glucose 93 mg/dL (80-115); Potassium 3.7 mmol/L (3.5-5.1); Sodium 136 mmol/L (136-145); Vancomycin, Trough 12.8 ug/mL
[2021-02-11] MEDS: Gabapentin 300 MG CAP PO SCH ×3 (08:55→20:30)
[2021-02-11] MEDS: Saccharomyces boulardii 250 MG CAP PO SCH (08:55)
[2021-02-11] MEDS: Losartan 25 MG TAB PO SCH (08:56)
[2021-02-11] MEDS: clonazePAM 0.5 MG TAB PO SCH ×3 (08:56→20:31)
[2021-02-11] MEDS: Carvedilol 3.125 MG TAB PO SCH ×2 (08:57→17:27)
[2021-02-11] MEDS ORDERED: Ibuprofen 800 MG TAB PO PRN (09:00)
[2021-02-11 09:21] LABS: Band 3 % (5-11); Eosinophils 2 % (0-10); Lymphocytes 20 % (21-51); MDiff Complete? YES; Monocytes 15 % (0-10); Neutrophil 59 % (42-75); Platelet Morphology Comment Appears Adequate; Polychromasia SLIGHT = 2-3 cells (100X) (0-2/hpf); Reactive Lymphocytes 1 % (0-10)
[2021-02-11] MEDS: VANCOMYCIN 1.75 GM/350 ML BAG 1.75 GM in Premix Bag 1 BAG IVPB SCH ×2 (09:45→20:32)
[2021-02-11] MEDS: Morphine 4 MG/ML VIAL SLOW IVP PRN ×2 (10:05→17:30)
[2021-02-11] MEDS ORDERED: Heparin 1,000 UNITS/ML VIAL ONE (11:27)
[2021-02-11] MEDS: Vancomycin 1.5 GRAM/300 ML BAG 1.5 GM in Premix Bag 1 BAG IVPB SCH (11:46)
[2021-02-11] MEDS: Warfarin Sodium 2 MG TAB PO SCH (17:28)
[2021-02-11] MEDS: Polyethylene Glycol 3350 17 GM Packet PO SCH (20:31)
[2021-02-12] MEDS: Morphine 4 MG/ML VIAL SLOW IVP PRN ×5 (00:17→20:28)
[2021-02-12] MEDS: Levothyroxine Sodium 75 MCG TAB PO SCH (06:09)
[2021-02-12] MEDS: Polyethylene Glycol 3350 17 GM Packet PO SCH ×2 (06:57→20:28)
[2021-02-12 07:57] LABS: INR-International Normal Ratio 1.1; Prothrombin Time 14.2 sec (12.0-14.7)
[2021-02-12] MEDS: Losartan 25 MG TAB PO SCH (08:09)
[2021-02-12] MEDS: Carvedilol 3.125 MG TAB PO SCH ×2 (08:09→16:19)
[2021-02-12] MEDS: clonazePAM 0.5 MG TAB PO SCH ×3 (09:04→20:28)
[2021-02-12] MEDS: Gabapentin 300 MG CAP PO SCH ×3 (09:04→20:28)
[2021-02-12] MEDS: VANCOMYCIN 1.75 GM/350 ML BAG 1.75 GM in Premix Bag 1 BAG IVPB SCH (09:05)
[2021-02-12] MEDS: Saccharomyces boulardii 250 MG CAP PO SCH (09:05)
[2021-02-12] MEDS: Warfarin Sodium 2 MG TAB PO SCH (16:17)
[2021-02-12 20:42] LABS: Vancomycin, Trough 18.8 ug/mL
[2021-02-12] MEDS: ceFAZolin Sodium/D5W 2 GM in Premix Bag 1 BAG IVPB SCH (23:00)
[2021-02-13] MEDS: Morphine 4 MG/ML VIAL SLOW IVP PRN ×5 (00:05→20:55)
[2021-02-13] MEDS: ceFAZolin Sodium/D5W 2 GM in Premix Bag 1 BAG IVPB SCH ×3 (04:11→22:40)
[2021-02-13] MEDS: Levothyroxine Sodium 75 MCG TAB PO SCH (06:11)
[2021-02-13 06:51] LABS: INR-International Normal Ratio 1.1
[2021-02-13] MEDS: Losartan 25 MG TAB PO SCH (07:56)
[2021-02-13] MEDS: Carvedilol 3.125 MG TAB PO SCH ×2 (07:57→18:04)
[2021-02-13] MEDS: Saccharomyces boulardii 250 MG CAP PO SCH (07:58)
[2021-02-13] MEDS: Gabapentin 300 MG CAP PO SCH ×3 (07:59→20:56)
[2021-02-13] MEDS: clonazePAM 0.5 MG TAB PO SCH ×3 (07:59→20:56)
[2021-02-13 11:58] LABS: SARS-CoV-2 PCR by NAA Not Detected (NotDetected)
[2021-02-13] MEDS: Warfarin Sodium 2 MG TAB PO SCH (18:03)
[2021-02-13] MEDS: Polyethylene Glycol 3350 17 GM Packet PO SCH (20:57)
[2021-02-14] MEDS: Morphine 4 MG/ML VIAL SLOW IVP PRN ×2 (05:29→09:06)
[2021-02-14 07:38] VITALS: BP 108/52; TEMP 98.4
[2021-02-14 09:00] LABS: INR-International Normal Ratio 1.1; Prothrombin Time 14.1 sec (12.0-14.7)
[2021-02-14] MEDS ORDERED: cefTRIAXone\\ROCEPHIN 2 GM in Sodium Chloride 0.9% 100 ML IVPB SCH (09:00)
[2021-02-14] MEDS: clonazePAM 0.5 MG TAB PO SCH (09:05)
[2021-02-14] MEDS: Levothyroxine Sodium 75 MCG TAB PO SCH (09:05)
[2021-02-14] MEDS: Carvedilol 3.125 MG TAB PO SCH (09:05)
[2021-02-14] MEDS: Losartan 25 MG TAB PO SCH (09:06)
[2021-02-14] MEDS: Saccharomyces boulardii 250 MG CAP PO SCH (09:06)
[2021-02-14] MEDS: Gabapentin 300 MG CAP PO SCH (09:06)
== END 2021-02-14 12:00 | disposition home health service (06) | DRG 981 ==
LOC: ERS 15:12 → T4-B 16:00
PROVIDERS: ADMIT Internal Medicine; ATTEND Family Medicine
PROC: 0K9 Muscles, Drainage (ICD-10-PCS; 2021-02-10)
PROC: 02HV33Z Insertion of Infusion Device into Superior Vena Cava, Percutaneous Approach (ICD-10-PCS; principal; 2021-02-11)
PROC: B548ZZA Ultrasonography of Superior Vena Cava, Guidance (ICD-10-PCS; 2021-02-11)
PROC: 0JPT3WZ Removal of Totally Implantable Vascular Access Device from Trunk Subcutaneous Tissue and Fascia, Percutaneous Approach (ICD-10-PCS; 2021-02-12)
PROC: 05PY33Z Removal of Infusion Device from Upper Vein, Percutaneous Approach (ICD-10-PCS; 2021-02-12)
DX: K68.12 Psoas muscle abscess (principal); Z20.822 Contact with and (suspected) exposure to COVID-19; G06.1 Intraspinal abscess and granuloma; M46.26 Osteomyelitis of vertebra, lumbar region; T82.7XXA Infection and inflammatory reaction due to other cardiac and vascular devices, implants and grafts, initial encounter; M46.40 Discitis, unspecified, site unspecified; G89.29 Other chronic pain; F12.10 Cannabis abuse, uncomplicated; E66.9 Obesity, unspecified; E03.9 Hypothyroidism, unspecified; I10 Essential (primary) hypertension; F32.A Depression, unspecified; K21.9 Gastro-esophageal reflux disease without esophagitis; K59.00 Constipation, unspecified; B95.7 Other staphylococcus as the cause of diseases classified elsewhere; Y84.9 Medical procedure, unspecified as the cause of abnormal reaction of the patient, or of later complication, without mention of misadventure at the time of the procedure; Z68.31 Body mass index [BMI] 31.0-31.9, adult; Z86.73 Personal history of transient ischemic attack (TIA), and cerebral infarction without residual deficits; Z90.49 Acquired absence of other specified parts of digestive tract; Z87.891 Personal history of nicotine dependence; Z88.5 Allergy status to narcotic agent; Z88.8 Allergy status to other drugs, medicaments and biological substances; Z91.011 Allergy to milk products; Z79.01 Long term (current) use of anticoagulants; Z79.890 Hormone replacement therapy; Z79.899 Other long term (current) drug therapy; F11.21 Opioid dependence, in remission
CPT/HCPCS: 36415; 36569; 49060; 77012; 80048; 80053; 80202; 81003; 81015; 85007; 85025; 85027; 85610; 85652; 85730; 86140; 87070; 87077; 87086; 87149; 87186; 87205; 96365; 96367; C1751; J0692; J0696; J1644; J2270; J2405; J3010; J3370; J3490; U0003; U0005

== ENCOUNTER 2021-02-19 12:56 | Emergency (ER) | payer MEDICARE, OTHER ==
[2021-02-19] MEDS ORDERED: cefTRIAXone\\ROCEPHIN 2 GM VIAL ONE (13:49)
[2021-02-19 14:11] LABS: #Basophils 0.1 thou/uL (0.0-0.2); #Lymphocytes 1.3 thou/uL (1.20-3.40); #Monocytes 0.8 thou/uL (0.11-0.59); %Basophils 0.6 % (0.0-1.0); %Eosinophils 0.5 % (0.0-10.0); %Lymphocytes 15.9 % (21.0-51.0); %Neutrophils 73.1 % (42.0-75.0); Hemoglobin 15.2 g/dL (14.0-18.0); Mean Corpuscular Hemoglobin 32.2 pg (27.0-31.0); Mean Corpuscular Volume 94.5 fL (78.0-98.0); Mean Platelet Volume 7.6 fL (7.4-10.4); Platelet Count 358 thou/uL (130-400); RBC Distribution Width 11.8 % (11.5-14.5); Red Blood Cell (RBC) Count 4.74 mill/uL (4.70-6.10); White Blood Cell (WBC) Count 8.3 thou/uL (4.8-10.8)
[2021-02-19 14:32] LABS: ALT (SGPT) 20 U/L (8-55); AST (SGOT) 31 U/L (5-34); Albumin 3.9 g/dL (3.4-4.8); Alkaline Phosphatase 143 U/L (40-110); Anion Gap 17 mmol/L (10-20); BUN (Urea Nitrogen) 11 mg/dL (8.4-25.7); Bilirubin, Total 0.8 mg/dL (0.2-1.2); Calc. Creatinine Clearance 0 mL/min (70-130); Calcium 10.2 mg/dL (7.8-10.44); Carbon Dioxide 23 mmol/L (23-31); Chloride 103 mmol/L (98-107); Globulin 4.3 g/dL (2.4-3.5); Glucose 113 mg/dL (80-115); Potassium 3.9 mmol/L (3.5-5.1); Protein, Total 8.2 g/dL (5.8-8.1); Sodium 139 mmol/L (136-145)
== END 2021-02-19 22:08 ==
LOC: ERS 12:56
DX: R78.81 Bacteremia (principal); I10 Essential (primary) hypertension; Z86.73 Personal history of transient ischemic attack (TIA), and cerebral infarction without residual deficits; Z87.891 Personal history of nicotine dependence; Z79.899 Other long term (current) drug therapy; Z79.01 Long term (current) use of anticoagulants
CPT/HCPCS: 80053; 85025; 96365; J0696

== ENCOUNTER 2021-02-21 12:22 | Outpatient (CLI) | payer MEDICARE, OTHER | END 2021-02-21 12:23 | disposition home or self-care (01) | LOC: RAD 12:22 | PROVIDERS: ATTEND Student in an Organized Health Care Education/Training Program | DX: K59.00 Constipation, unspecified (principal); M46.46 Discitis, unspecified, lumbar region; R29.90 Unspecified symptoms and signs involving the nervous system | CPT/HCPCS: 74018 ==

== ENCOUNTER 2021-03-06 15:17 | Outpatient (CLI) | payer MEDICARE, MEDICAID | END 2021-03-06 15:18 | disposition home or self-care (01) | LOC: TBSIIMAG 15:17 | PROVIDERS: ATTEND Anesthesiology Pain Medicine | DX: M46.46 Discitis, unspecified, lumbar region (principal); G06.1 Intraspinal abscess and granuloma; M46.26 Osteomyelitis of vertebra, lumbar region; R60.0 Localized edema | CPT/HCPCS: 72148 ==

== ENCOUNTER 2021-03-12 15:21 | Inpatient (IN) | payer MEDICARE, MEDICAID ==
[2021-03-12] MEDS ORDERED: Morphine 4 MG/ML VIAL ONE (17:40)
[2021-03-12 17:45] LABS: #Basophils 0.1 thou/uL (0.0-0.2); #Eosinphils 0.4 thou/uL (0.0-0.7); #Lymphocytes 1.8 thou/uL (1.20-3.40); #Monocytes 0.9 thou/uL (0.11-0.59); #Neutrophils 5.4 thou/uL (1.40-6.50); %Basophils 0.8 % (0.0-1.0); %Eosinophils 5.2 % (0.0-10.0); %Lymphocytes 21.4 % (21.0-51.0); %Monocytes 10.2 % (0.0-10.0); %Neutrophils 62.4 % (42.0-75.0); Hemoglobin 14.1 g/dL (14.0-18.0); Mean Corpuscular HGB CONC 33.5 g/dL (32.0-36.0); Mean Corpuscular Hemoglobin 32.7 pg (27.0-31.0); Mean Corpuscular Volume 97.7 fL (78.0-98.0); Mean Platelet Volume 7.1 fL (7.4-10.4); Platelet Count 258 thou/uL (130-400); RBC Distribution Width 12.4 % (11.5-14.5); Red Blood Cell (RBC) Count 4.32 mill/uL (4.70-6.10); White Blood Cell (WBC) Count 8.6 thou/uL (4.8-10.8)
[2021-03-12 17:57] LABS: INR-International Normal Ratio 2.7; Prothrombin Time 29.4 sec (12.0-14.7)
[2021-03-12 17:58] LABS: PTT 75.6 sec (22.9-36.1)
[2021-03-12 18:16] LABS: ALT (SGPT) 19 U/L (8-55); AST (SGOT) 19 U/L (5-34); Albumin 3.7 g/dL (3.4-4.8); Alkaline Phosphatase 140 U/L (40-110); Anion Gap 13 mmol/L (10-20); BUN (Urea Nitrogen) 13 mg/dL (8.4-25.7); Bilirubin, Total 0.3 mg/dL (0.2-1.2); Calc. Creatinine Clearance 0 mL/min (70-130); Calcium 9.6 mg/dL (7.8-10.44); Carbon Dioxide 26 mmol/L (23-31); Chloride 106 mmol/L (98-107); Globulin 3.4 g/dL (2.4-3.5); Glucose 90 mg/dL (80-115); Potassium 4.5 mmol/L (3.5-5.1); Protein, Total 7.1 g/dL (5.8-8.1); Sodium 140 mmol/L (136-145)
[2021-03-12] MEDS ORDERED: tiZANidine HCl 4 MG TAB PO PRN (18:49)
[2021-03-12] MEDS ORDERED: traMADol HCl 50 MG TAB PO PRN (18:49)
[2021-03-12] MEDS ORDERED: Acetaminophen/Codeine 30-300mg Tablet PO PRN (18:49)
[2021-03-12 19:01] LABS: Bacteria/HPF None Seen HPF (None Seen); Bilirubin Negative (Negative); Blood, Urine 2+ (Negative); Clarity Clear (Clear); Glucose, Urine (Dipstick) Normal (Negative); Ketone, Urine Trace mg/dL (Negative); Leukocyte Negative Leu/uL (Negative); Nitrite Negative (Negative); Protein, Urine (Dipstick) 30 mg/dL (Neg-Trace); RBC/HPF 21-50 HPF (0-3); Specific Gravity, Urine 1.036 (1.002-1.036); Squamous Epithelial None Seen HPF (0-3); Urobilinogen Normal mg/dL (Less than 2); pH, Urine 5.5 (5.0-9.0)
[2021-03-12] MEDS ORDERED: cefTRIAXone\\ROCEPHIN 2 GM in Sodium Chloride 0.9% 100 ML IVPB SCH ×2 (19:15→23:30)
[2021-03-12 20:32] LABS: SARS-CoV-2 NAA Rapid Test Not Detected (NotDetected)
[2021-03-12] MEDS ORDERED: clonazePAM 0.5 MG TAB PO SCH (21:00)
[2021-03-12] MEDS: Gabapentin 300 MG CAP PO SCH (21:22)
[2021-03-12] MEDS: HYDROcodone/Acetaminophen 7.5/325 mg Tablet PO PRN (21:23)
[2021-03-12] MEDS ORDERED: cefTRIAXone\\ROCEPHIN 2 GM VIAL IVPB SCH (22:33)
[2021-03-12] MEDS: Diazepam 5 MG TAB PO PRN (23:37)
[2021-03-13 05:25] VITALS: BMI 31.1
[2021-03-13] MEDS ORDERED: FLU VACC QS2021-22(6MOS UP)/PF 60 MCG/0.5 ML SYRINGE IM ONE (05:30)
[2021-03-13] MEDS: Levothyroxine Sodium 75 MCG TAB PO SCH (05:53)
[2021-03-13] MEDS: HYDROcodone/Acetaminophen 7.5/325 mg Tablet PO PRN ×2 (05:53→15:58)
[2021-03-13] MEDS: Morphine 4 MG/ML VIAL SLOW IVP PRN ×2 (08:48→11:42)
[2021-03-13] MEDS: Gabapentin 300 MG CAP PO SCH ×3 (08:52→21:29)
[2021-03-13] MEDS: Losartan 25 MG TAB PO SCH (08:53)
[2021-03-13] MEDS: Saccharomyces boulardii 250 MG CAP PO SCH (08:53)
[2021-03-13] MEDS: Carvedilol 6.25 MG TAB PO SCH (08:53)
[2021-03-13] MEDS ORDERED: cefTRIAXone\\ROCEPHIN 2 GM VIAL IVPB SCH (09:00)
[2021-03-13 10:02] LABS: INR-International Normal Ratio 1.7; Prothrombin Time 20.3 sec (12.0-14.7)
[2021-03-13 10:03] LABS: PTT 37.7 sec (22.9-36.1)
[2021-03-13] MEDS ORDERED: Phytonadione 10 MG/ML AMP SLOW IVP SCH (13:30)
[2021-03-13] MEDS ORDERED: Phytonadione 5 MG TAB PO SCH (14:30)
[2021-03-13] MEDS ORDERED: Morphine 4 MG/ML VIAL SLOW IVP PRN (16:19)
[2021-03-13] MEDS: cefTRIAXone\\ROCEPHIN 2 GM in Sodium Chloride 0.9% 100 ML IVPB SCH (17:13)
[2021-03-13] MEDS: oxyCODONE 5 MG TAB PO SCH ×2 (17:14→21:30)
[2021-03-14] MEDS: Diazepam 5 MG TAB PO PRN (03:53)
[2021-03-14] MEDS: Levothyroxine Sodium 75 MCG TAB PO SCH (05:37)
[2021-03-14] MEDS: oxyCODONE 5 MG TAB PO SCH ×5 (05:37→21:43)
[2021-03-14 06:37] LABS: INR-International Normal Ratio 1.5; Prothrombin Time 17.9 sec (12.0-14.7)
[2021-03-14 06:38] LABS: PTT 56.2 sec (22.9-36.1)
[2021-03-14] MEDS: Gabapentin 300 MG CAP PO SCH ×3 (09:00→21:42)
[2021-03-14] MEDS: Saccharomyces boulardii 250 MG CAP PO SCH (09:00)
[2021-03-14] MEDS: Losartan 25 MG TAB PO SCH (09:00)
[2021-03-14] MEDS: Carvedilol 6.25 MG TAB PO SCH (09:43)
[2021-03-14] MEDS ORDERED: Thrombin 5000 UNITS/5 ML VIAL ONE (11:53)
[2021-03-14] MEDS ORDERED: Fentanyl 100 MCG/2 ML VIAL ONE ×3 (12:14→16:11)
[2021-03-14] MEDS ORDERED: HYDROmorphone 0.5 MG/0.5 ML SYRINGE ONE ×3 (12:14→16:02)
[2021-03-14] MEDS ORDERED: Tranexamic Acid 1,000 MG/10 ML VIAL ONE (12:14)
[2021-03-14] MEDS ORDERED: Midazolam HCl 2 mg/2 ml Vial ONE (12:14)
[2021-03-14] MEDS ORDERED: Lidocaine 1% PF 5 ML VIAL ONE (12:42)
[2021-03-14] MEDS ORDERED: Glycopyrrolate 0.2 MG/ML 5 ML SYRINGE ONE (12:42)
[2021-03-14] MEDS ORDERED: Dexamethasone 20 MG/5 ML VIAL ONE (12:42)
[2021-03-14] MEDS ORDERED: PROPOFOL 200 MG/20 ML VIAL ONE (12:42)
[2021-03-14] MEDS ORDERED: Rocuronium Bromide 10 MG/ML (10ML VIAL) ONE (12:42)
[2021-03-14] MEDS ORDERED: ePHEDrine 50 MG/ML VIAL ONE (12:42)
[2021-03-14] MEDS ORDERED: Ondansetron PF 4 MG/2 ML Vial ONE (12:42)
[2021-03-14] MEDS ORDERED: Ondansetron HCl/PF 4 MG/2 ML Vial IVP PRN (14:40)
[2021-03-14] MEDS ORDERED: Promethazine HCl 25 MG/ML VIAL IVPB PRN (14:40)
[2021-03-14] MEDS ORDERED: HYDROmorphone 2 MG/ML VIAL SLOW IVP PRN (14:40)
[2021-03-14] MEDS ORDERED: Vancomycin 1.5 GRAM/300 ML BAG 1.5 GM in Premix Bag 1 BAG IVPB SCH ×2 (16:00→18:00)
[2021-03-14] MEDS: cefTRIAXone\\ROCEPHIN 2 GM in Sodium Chloride 0.9% 100 ML IVPB SCH (17:30)
[2021-03-14 17:31] LABS: Vancomycin, Trough Less than 1.1 ug/mL
[2021-03-14] MEDS: Vancomycin 1.5 GRAM/300 ML BAG 1.5 GM in Premix Bag 1 BAG IVPB SCH (18:55)
[2021-03-15] MEDS: Diazepam 5 MG TAB PO PRN (02:25)
[2021-03-15] MEDS: Acetaminophen 325 MG TAB PO PRN (02:30)
[2021-03-15] MEDS: Vancomycin 1.5 GRAM/300 ML BAG 1.5 GM in Premix Bag 1 BAG IVPB SCH ×2 (06:03→22:27)
[2021-03-15] MEDS: Levothyroxine Sodium 75 MCG TAB PO SCH (06:03)
[2021-03-15] MEDS: oxyCODONE 5 MG TAB PO SCH ×5 (06:03→21:31)
[2021-03-15 06:31] LABS: #Lymphocytes 0.9 thou/uL (1.20-3.40); #Monocytes 0.5 thou/uL (0.11-0.59); %Eosinophils 0.2 % (0.0-10.0); %Lymphocytes 9.7 % (21.0-51.0); %Monocytes 5.3 % (0.0-10.0); %Neutrophils 84.8 % (42.0-75.0); Hemoglobin 11.8 g/dL (14.0-18.0); Mean Corpuscular HGB CONC 32.9 g/dL (32.0-36.0); Mean Corpuscular Hemoglobin 31.1 pg (27.0-31.0); Mean Corpuscular Volume 94.7 fL (78.0-98.0); Mean Platelet Volume 7.1 fL (7.4-10.4); Platelet Count 258 thou/uL (130-400); White Blood Cell (WBC) Count 9.4 thou/uL (4.8-10.8)
[2021-03-15 06:42] LABS: INR-International Normal Ratio 1.2; Prothrombin Time 15.6 sec (12.0-14.7)
[2021-03-15 06:43] LABS: PTT 39.8 sec (22.9-36.1)
[2021-03-15 06:51] LABS: Anion Gap 11 mmol/L (10-20); BUN (Urea Nitrogen) 14 mg/dL (8.4-25.7); Calc. Creatinine Clearance 131 mL/min (70-130); Calcium 9.1 mg/dL (7.8-10.44); Carbon Dioxide 27 mmol/L (23-31); Chloride 103 mmol/L (98-107); Glucose 123 mg/dL (80-115); Potassium 4.3 mmol/L (3.5-5.1); Sodium 137 mmol/L (136-145)
[2021-03-15] MEDS: Gabapentin 300 MG CAP PO SCH ×3 (10:44→19:49)
[2021-03-15] MEDS: Carvedilol 6.25 MG TAB PO SCH (10:45)
[2021-03-15] MEDS: Losartan 25 MG TAB PO SCH (10:45)
[2021-03-15] MEDS: Saccharomyces boulardii 250 MG CAP PO SCH (10:45)
[2021-03-15] MEDS: cefTRIAXone\\ROCEPHIN 2 GM in Sodium Chloride 0.9% 100 ML IVPB SCH (17:12)
[2021-03-15 17:56] LABS: Vancomycin, Trough 11.7 ug/mL
[2021-03-15] MEDS: Diphenoxylate HCl/Atropine Tablet PO PRN (19:49)
[2021-03-15] MEDS: VANCOMYCIN 1.75 GM/350 ML BAG 1.75 GM in Premix Bag 1 BAG IVPB SCH (19:50)
[2021-03-15] MEDS: Melatonin 3 MG TAB PO PRN (21:31)
[2021-03-16] MEDS: Acetaminophen 325 MG TAB PO PRN (02:41)
[2021-03-16] MEDS: Diazepam 5 MG TAB PO PRN ×3 (02:41→23:16)
[2021-03-16] MEDS: Levothyroxine Sodium 75 MCG TAB PO SCH (05:31)
[2021-03-16] MEDS: oxyCODONE 5 MG TAB PO SCH ×5 (05:31→21:26)
[2021-03-16] MEDS: VANCOMYCIN 1.75 GM/350 ML BAG 1.75 GM in Premix Bag 1 BAG IVPB SCH ×2 (05:33→18:36)
[2021-03-16] MEDS: Carvedilol 6.25 MG TAB PO SCH (09:32)
[2021-03-16] MEDS: Losartan 25 MG TAB PO SCH (09:34)
[2021-03-16] MEDS: Gabapentin 300 MG CAP PO SCH ×3 (09:34→21:26)
[2021-03-16] MEDS: Saccharomyces boulardii 250 MG CAP PO SCH (09:35)
[2021-03-16] MEDS: Diphenoxylate HCl/Atropine Tablet PO PRN ×2 (09:46→18:03)
[2021-03-16] MEDS: cefTRIAXone\\ROCEPHIN 2 GM in Sodium Chloride 0.9% 100 ML IVPB SCH (17:33)
[2021-03-17 05:39] LABS: Vancomycin, Trough 20.5 ug/mL
[2021-03-17] MEDS: Levothyroxine Sodium 75 MCG TAB PO SCH (06:21)
[2021-03-17] MEDS: VANCOMYCIN 1.75 GM/350 ML BAG 1.75 GM in Premix Bag 1 BAG IVPB SCH ×2 (06:21→18:06)
[2021-03-17] MEDS: oxyCODONE 5 MG TAB PO SCH ×5 (06:21→21:29)
[2021-03-17] MEDS ORDERED: Magnesium Oxide 400 MG TAB PO SCH (08:45)
[2021-03-17] MEDS ORDERED: Loperamide HCl 2 MG CAP PO PRN (08:47)
[2021-03-17] MEDS: Gabapentin 300 MG CAP PO SCH ×3 (09:07→20:48)
[2021-03-17] MEDS: Losartan 25 MG TAB PO SCH (09:08)
[2021-03-17] MEDS: Carvedilol 6.25 MG TAB PO SCH (09:08)
[2021-03-17] MEDS: Saccharomyces boulardii 250 MG CAP PO SCH (09:09)
[2021-03-17] MEDS ORDERED: Methocarbamol 500 MG TAB PO PRN (09:14)
[2021-03-17] MEDS: Acetaminophen 325 MG TAB PO PRN ×2 (11:55→20:54)
[2021-03-17] MEDS: cefTRIAXone\\ROCEPHIN 2 GM in Sodium Chloride 0.9% 100 ML IVPB SCH (16:43)
[2021-03-17] MEDS: Melatonin 3 MG TAB PO PRN (20:49)
[2021-03-18] MEDS: VANCOMYCIN 1.75 GM/350 ML BAG 1.75 GM in Premix Bag 1 BAG IVPB SCH (05:18)
[2021-03-18] MEDS: oxyCODONE 5 MG TAB PO SCH ×3 (05:19→14:19)
[2021-03-18] MEDS: Levothyroxine Sodium 75 MCG TAB PO SCH (05:21)
[2021-03-18] MEDS: Losartan 25 MG TAB PO SCH (09:33)
[2021-03-18] MEDS: Carvedilol 6.25 MG TAB PO SCH (09:34)
[2021-03-18] MEDS: Gabapentin 300 MG CAP PO SCH ×2 (09:35→14:17)
[2021-03-18] MEDS: Saccharomyces boulardii 250 MG CAP PO SCH (09:35)
[2021-03-18] MEDS: cefTRIAXone\\ROCEPHIN 2 GM in Sodium Chloride 0.9% 100 ML IVPB SCH (15:31)
[2021-03-18 17:56] VITALS: TEMP 98.1
[2021-03-18 19:33] VITALS: BP 144/62
== END 2021-03-18 17:15 | disposition home or self-care (01) | DRG 28 ==
LOC: ERS 15:21 → SJJU 18:14
PROVIDERS: ADMIT Surgery; ATTEND Surgery
PROC: 009U0ZX Drainage of Spinal Canal, Open Approach, Diagnostic (ICD-10-PCS; principal; 2021-03-14)
PROC: 01NB0ZZ Release Lumbar Nerve, Open Approach (ICD-10-PCS; 2021-03-14)
DX: G06.1 Intraspinal abscess and granuloma (principal); K68.12 Psoas muscle abscess; Z20.822 Contact with and (suspected) exposure to COVID-19; M46.26 Osteomyelitis of vertebra, lumbar region; F11.20 Opioid dependence, uncomplicated; M48.061 Spinal stenosis, lumbar region without neurogenic claudication; I10 Essential (primary) hypertension; F32.A Depression, unspecified; Z79.01 Long term (current) use of anticoagulants; Z79.890 Hormone replacement therapy; Z79.899 Other long term (current) drug therapy; Z86.73 Personal history of transient ischemic attack (TIA), and cerebral infarction without residual deficits; Z90.49 Acquired absence of other specified parts of digestive tract; Z88.5 Allergy status to narcotic agent; Z87.891 Personal history of nicotine dependence; Z88.8 Allergy status to other drugs, medicaments and biological substances; Z91.011 Allergy to milk products
CPT/HCPCS: 36415; 72158; 76000; 80048; 80053; 80202; 81003; 81015; 85025; 85610; 85730; 86140; 86850; 86900; 86901; 87070; 87205; 90471; 90686; 93005; 96374; G0008; J0696; J1100; J1170; J2250; J2270; J2405; J2704; J3010; J3370; J3490; J7189; U0002

== ENCOUNTER 2021-08-14 13:17 | Outpatient (CLI) | payer MEDICARE, MEDICAID ==
[2021-08-14 14:33] LABS: #Basophils 0.1 10x3/uL (0.0-0.2); #Eosinphils 0.2 10x3/uL (0.0-0.5); #Monocytes 1.2 10x3/uL (0.0-1.1); #Neutrophils 5.5 10x3/uL (1.5-8.4); %Basophils 0.6 % (0.0-2.0); %Eosinophils 2.2 % (0.0-6.0); %Lymphocytes 28.2 % (18.0-47.0); %Monocytes 12.5 % (0.0-10.0); %Neutrophils 56.2 % (40.0-75.0); Hemoglobin 16.1 g/dL (13.5-17.5); Mean Corpuscular HGB CONC 35.6 g/dL (32.0-36.0); Mean Corpuscular Hemoglobin 31.6 pg (27.0-33.0); Mean Corpuscular Volume 88.8 fl (81.2-95.1); Mean Platelet Volume 10.9 fl (7.4-10.4); Platelet Count 246 10x3/uL (150-450); RBC Distribution Width 12.2 % (11.5-14.5); Red Blood Cell (RBC) Count 5.09 10x6/uL (4.32-5.72); White Blood Cell (WBC) Count 9.8 10x3/uL (3.5-10.5)
[2021-08-14 14:40] LABS: Anion Gap 19 mmol/L (10-20); BUN (Urea Nitrogen) 15 mg/dL (8.4-25.7); Calc. Creatinine Clearance 0 mL/min (70-130); Calcium 10.4 mg/dL (7.8-10.44); Carbon Dioxide 23 mmol/L (23-31); Chloride 107 mmol/L (98-107); Glucose 87 mg/dL (80-115); Potassium 4.5 mmol/L (3.5-5.1); Sodium 144 mmol/L (136-145)
[2021-08-14 21:29] LABS: SARS-CoV-2 PCR by NAA Not Detected (NotDetected)
== END 2021-08-14 13:18 | disposition home or self-care (01) ==
LOC: LABBT 13:17
PROVIDERS: ATTEND Surgery
DX: Z01.812 Encounter for preprocedural laboratory examination (principal); G89.4 Chronic pain syndrome; Z20.822 Contact with and (suspected) exposure to COVID-19
CPT/HCPCS: 80048; 85025; U0003; U0005

== ENCOUNTER 2021-08-15 08:53 | Day surgery (SDC) | payer MEDICARE, MEDICAID ==
[2021-08-13 11:35] VITALS: BMI 31.7
[2021-08-15] MEDS ORDERED: Acetaminophen 500 MG TAB ONE ×2 (09:17→09:18)
[2021-08-15] MEDS ORDERED: Lidocaine 1% MPF 2 ML VIAL ONE (10:10)
[2021-08-15] MEDS ORDERED: Propofol 1,000 MG/100 ML VIAL IV ONE (10:56)
[2021-08-15] MEDS ORDERED: Bupivacaine 0.25% 10 ML VIAL ONE ×2 (13:09→14:48)
[2021-08-15] MEDS ORDERED: Lidocaine 1% w/Epinephrine 1:100K 20 ML VIAL ONE ×2 (13:09→14:48)
[2021-08-15] MEDS ORDERED: Ketamine 50 MG/ML (10ML VIAL) ONE (13:40)
[2021-08-15] MEDS ORDERED: Ondansetron PF 4 MG/2 ML Vial ONE (13:57)
[2021-08-15] MEDS ORDERED: Dexamethasone 20 MG/5 ML VIAL ONE (13:57)
[2021-08-15] MEDS ORDERED: Glycopyrrolate 0.2 MG/ML 5 ML SYRINGE ONE (13:57)
[2021-08-15] MEDS ORDERED: Lidocaine 1% PF 5 ML VIAL ONE (13:57)
[2021-08-15] MEDS ORDERED: PROPOFOL 200 MG/20 ML VIAL ONE (13:57)
== END 2021-08-15 17:01 | disposition home or self-care (01) ==
LOC: SDC 08:53
PROVIDERS: ATTEND Surgery
PROC: 0JH60WZ Insertion of Totally Implantable Vascular Access Device into Chest Subcutaneous Tissue and Fascia, Open Approach (ICD-10-PCS; principal; 2021-08-15)
PROC: 02HV33Z Insertion of Infusion Device into Superior Vena Cava, Percutaneous Approach (ICD-10-PCS; 2021-08-15)
DX: G89.4 Chronic pain syndrome (principal); I10 Essential (primary) hypertension; K21.9 Gastro-esophageal reflux disease without esophagitis; Z79.01 Long term (current) use of anticoagulants; Z79.890 Hormone replacement therapy; Z79.899 Other long term (current) drug therapy; Z88.6 Allergy status to analgesic agent; Z88.8 Allergy status to other drugs, medicaments and biological substances; Z91.011 Allergy to milk products; Z91.048 Other nonmedicinal substance allergy status
CPT/HCPCS: 36561; 71045; C1788; J1100; J1642; J2405; J2704; S0020

== ENCOUNTER 2021-09-02 07:53 | Outpatient (CLI) | payer MEDICARE, MEDICAID | END 2021-09-02 07:54 | disposition home or self-care (01) | LOC: TBSIIMAG 07:53 | PROVIDERS: ATTEND Anesthesiology Pain Medicine | DX: M54.12 Radiculopathy, cervical region (principal); M50.13 Cervical disc disorder with radiculopathy, cervicothoracic region; M46.40 Discitis, unspecified, site unspecified | CPT/HCPCS: 72141; 72146 ==

== ENCOUNTER 2021-09-17 14:37 | Outpatient (CLI) | payer MEDICARE, OTHER | END 2021-09-17 14:38 | disposition home or self-care (01) | LOC: RAD 14:37 | PROVIDERS: ATTEND Surgery | DX: Z48.812 Encounter for surgical aftercare following surgery on the circulatory system (principal); Z95.828 Presence of other vascular implants and grafts | CPT/HCPCS: 36005; J1642 ==

== ENCOUNTER 2021-10-14 09:37 | Outpatient (CLI) | payer MEDICARE, OTHER | END 2021-10-14 09:38 | disposition home or self-care (01) | LOC: TBSIIMAG 09:37 | PROVIDERS: ATTEND Anesthesiology Pain Medicine | DX: M46.40 Discitis, unspecified, site unspecified (principal); M25.78 Osteophyte, vertebrae; M43.16 Spondylolisthesis, lumbar region; M47.816 Spondylosis without myelopathy or radiculopathy, lumbar region; M48.56XD Collapsed vertebra, not elsewhere classified, lumbar region, subsequent encounter for fracture with routine healing; M51.86 Other intervertebral disc disorders, lumbar region; M96.842 Postprocedural seroma of a musculoskeletal structure following a musculoskeletal system procedure | CPT/HCPCS: 72110; 72148 ==

== ENCOUNTER 2022-08-12 10:31 | Outpatient (CLI) | payer MEDICARE, OTHER | END 2022-08-12 10:32 | disposition home or self-care (01) | LOC: TBSIIMAG 10:31 | PROVIDERS: ATTEND Anesthesiology Pain Medicine | DX: M51.14 Intervertebral disc disorders with radiculopathy, thoracic region (principal); M51.04 Intervertebral disc disorders with myelopathy, thoracic region; M48.03 Spinal stenosis, cervicothoracic region; M47.24 Other spondylosis with radiculopathy, thoracic region | CPT/HCPCS: 72146 ==

== ENCOUNTER 2022-09-16 11:28 | Day surgery (SDC) | payer MEDICARE, MEDICAID ==
[2022-09-15 10:25] VITALS: BMI 29.2
[2022-09-16] MEDS ORDERED: PROPOFOL 200 MG/20 ML VIAL ONE (14:24)
[2022-09-16] MEDS ORDERED: Lidocaine 1% PF 5 ML VIAL ONE (14:24)
== END 2022-09-16 16:23 | disposition home or self-care (01) ==
LOC: SDC 11:28
PROVIDERS: ATTEND Internal Medicine Gastroenterology
PROC: 0DB38ZX Excision of Lower Esophagus, Via Natural or Artificial Opening Endoscopic, Diagnostic (ICD-10-PCS; principal; 2022-09-16)
PROC: 0DBK8ZX Excision of Ascending Colon, Via Natural or Artificial Opening Endoscopic, Diagnostic (ICD-10-PCS; 2022-09-16)
PROC: 0DBL8ZX Excision of Transverse Colon, Via Natural or Artificial Opening Endoscopic, Diagnostic (ICD-10-PCS; 2022-09-16)
PROC: 0DBN8ZX Excision of Sigmoid Colon, Via Natural or Artificial Opening Endoscopic, Diagnostic (ICD-10-PCS; 2022-09-16)
DX: D12.2 Benign neoplasm of ascending colon (principal); D12.3 Benign neoplasm of transverse colon; D12.5 Benign neoplasm of sigmoid colon; K21.00 Gastro-esophageal reflux disease with esophagitis, without bleeding; K64.8 Other hemorrhoids; K64.4 Residual hemorrhoidal skin tags; R63.4 Abnormal weight loss; Z86.010 Personal history of colon polyps; Z88.6 Allergy status to analgesic agent; Z88.8 Allergy status to other drugs, medicaments and biological substances
CPT/HCPCS: 88305; J1642; J2704

== ENCOUNTER 2023-03-04 09:00 | Outpatient (CLI) | payer MEDICARE, MEDICAID | END 2023-03-04 15:00 | disposition home or self-care (01) | LOC: MRI 09:00 | PROVIDERS: ATTEND Anesthesiology Pain Medicine | DX: M47.26 Other spondylosis with radiculopathy, lumbar region (principal); M47.815 Spondylosis without myelopathy or radiculopathy, thoracolumbar region; M47.817 Spondylosis without myelopathy or radiculopathy, lumbosacral region; Z98.890 Other specified postprocedural states | CPT/HCPCS: 72148 ==

== ENCOUNTER 2024-01-28 13:11 | Outpatient (CLI) | payer MEDICARE, MEDICAID ==
[2024-01-28] MEDS ORDERED: Iopamidol 370 76% 100 ML VIAL ONE (15:13)
== END 2024-01-28 13:12 | disposition home or self-care (01) ==
LOC: CT 13:11
PROVIDERS: ATTEND Urology
DX: N20.0 Calculus of kidney (principal); N45.2 Orchitis; N50.89 Other specified disorders of the male genital organs; K57.30 Diverticulosis of large intestine without perforation or abscess without bleeding; M47.819 Spondylosis without myelopathy or radiculopathy, site unspecified; N43.3 Hydrocele, unspecified; N50.3 Cyst of epididymis; I70.0 Atherosclerosis of aorta; N28.89 Other specified disorders of kidney and ureter; Z98.890 Other specified postprocedural states; Z98.1 Arthrodesis status
CPT/HCPCS: 74178; 76870; 93976; J1642; Q9967

== ENCOUNTER 2024-03-20 12:58 | Outpatient (CLI) | payer MEDICARE, MEDICAID ==
[2024-03-20 16:27] LABS: #Basophils 0.07 10x3/uL (0.0-0.2); %Basophils 0.9 % (0.0-1.0); %Eosinophils 2.6 % (0.0-10.0); %Lymphocytes 28.5 % (21.0-51.0); %Monocytes 13.7 % (0.0-10.0); Hematocrit 50.4 % (42.0-52.0); Hemoglobin 17.6 g/dL (14.0-18.0); Mean Corpuscular HGB CONC 34.9 g/dL (32.0-36.0); Mean Corpuscular Hemoglobin 32.8 pg (27.0-31.0); Mean Corpuscular Volume 93.9 fL (78.0-98.0); Mean Platelet Volume 10.9 fL (7.4-10.4); Platelet Count 203 10x3/uL (130-400); RBC Distribution Width 12.4 % (11.5-14.5); Red Blood Cell (RBC) Count 5.37 mill/uL (4.70-6.10)
[2024-03-20 16:35] LABS: Bacteria/HPF None Seen HPF (None Seen); Bilirubin Negative (Negative); Blood, Urine Negative (Negative); Clarity Clear (Clear); Glucose, Urine (Dipstick) Normal (Negative); Ketone, Urine Negative (Negative); Leukocyte 75 Leu/uL (Negative); Nitrite Negative (Negative); Protein, Urine (Dipstick) Negative (Neg-Trace); RBC/HPF 0-3 HPF (0-3); Specific Gravity, Urine 1.006 (1.002-1.036); Squamous Epithelial 0-3 HPF (0-3); Urobilinogen Normal mg/dL (Less than 2); pH, Urine 6.5 (5.0-9.0)
[2024-03-20 16:37] LABS: Albumin (w/Testosterone Panel) 4.6 g/dL
[2024-03-20 16:39] LABS: Anion Gap 13 mmol/L (10-20); BUN (Urea Nitrogen) 12 mg/dL (8.4-25.7); Calc. Creatinine Clearance 0 mL/min (70-130); Calcium 9.8 mg/dL (7.8-10.44); Carbon Dioxide 22 mmol/L (23-31); Chloride 106 mmol/L (98-107); Estimated GFR 84; Glucose 80 mg/dL (80-115); Sodium 137 mmol/L (136-145)
[2024-03-20 16:44] LABS: INR-International Normal Ratio 1.5; PTT 32.1 sec (22.9-36.1); Prothrombin Time 18.3 sec (12.0-14.7)
[2024-03-20 17:02] LABS: Sex Hormone Binding Globulin 33.4 nmol/L (11-78); Testosterone, Free 22.4 pg/mL (47-244); Testosterone, Total 125.58 ng/dL (221-716)
== END 2024-03-20 12:59 | disposition home or self-care (01) ==
LOC: LABBT 12:58
PROVIDERS: ATTEND Urology
DX: Z01.818 Encounter for other preprocedural examination (principal); Z12.5 Encounter for screening for malignant neoplasm of prostate; N50.89 Other specified disorders of the male genital organs; N45.2 Orchitis; G24.3 Spasmodic torticollis; M47.27 Other spondylosis with radiculopathy, lumbosacral region; J44.9 Chronic obstructive pulmonary disease, unspecified; I87.2 Venous insufficiency (chronic) (peripheral); R35.0 Frequency of micturition; N20.0 Calculus of kidney; N50.0 Atrophy of testis; I87.8 Other specified disorders of veins; R79.89 Other specified abnormal findings of blood chemistry; D75.1 Secondary polycythemia; R31.29 Other microscopic hematuria; N28.1 Cyst of kidney, acquired; N52.9 Male erectile dysfunction, unspecified; Z79.01 Long term (current) use of anticoagulants; Z95.828 Presence of other vascular implants and grafts
CPT/HCPCS: 80048; 81001; 82670; 84270; 84403; 85025; 85610; 85730; 87086; 93005; 93010

== ENCOUNTER 2024-04-03 05:47 | Day surgery (SDC) | payer MEDICARE, MEDICAID ==
[2024-03-20 13:37] VITALS: BMI 28.0
[2024-04-03 06:53] LABS: Prothrombin Time 13.4 sec (12.0-14.7)
[2024-04-03 06:54] LABS: PTT 27.9 sec (22.9-36.1)
[2024-04-03] MEDS ORDERED: PROPOFOL 20 ML ONE ×2 (07:01→08:01)
[2024-04-03] MEDS ORDERED: fentaNYL PF 100 MCG/2 ML SYRINGE ONE (07:01)
[2024-04-03] MEDS ORDERED: Lidocaine 1% PF 5 ML VIAL ONE (07:01)
[2024-04-03] MEDS ORDERED: Bacitracin Zinc Ointment 30 gm TUBE ONE (07:13)
[2024-04-03] MEDS ORDERED: Bupivacaine 0.25% HCL 30 ML VIAL ONE (07:13)
[2024-04-03] MEDS ORDERED: CEFAZOLIN 2 GM VIAL ONE (07:14)
[2024-04-03] MEDS ORDERED: cefTRIAXone (ROCEPHIN) 2 GM VIAL ONE (07:16)
[2024-04-03] MEDS ORDERED: Sodium Chloride 0.9% 100 ML ONE (07:16)
[2024-04-03] MEDS ORDERED: Dexamethasone 4 mg/ml Vial ONE (07:50)
[2024-04-03] MEDS ORDERED: Ondansetron PF 4 MG/2 ML Vial ONE (07:50)
[2024-04-03] MEDS ORDERED: Midazolam HCl 2 mg/2 ml Vial ONE (07:52)
[2024-04-03] MEDS ORDERED: ePHEDrine Sulfate 50 MG/10 ML VIAL ONE (08:00)
[2024-04-03] MEDS ORDERED: Rocuronium Bromide 10 MG/ML (10ML VIAL) ONE (08:08)
[2024-04-03] MEDS ORDERED: Glycopyrrolate 0.2 MG/ML 5 ML SYRINGE ONE (08:08)
[2024-04-03] MEDS ORDERED: NEOSTIGMINE 3 MG/3 ML SYRINGE ONE (08:11)
[2024-04-03] MEDS ORDERED: SUGAMMADEX SODIUM 200 MG/2 ML VIAL ONE (08:15)
[2024-04-03] MEDS ORDERED: Tamsulosin HCl 0.4 MG CAP ONE (09:45)
[2024-04-03] MEDS ORDERED: HYDROcodone/Acetaminophen 5/325 mg Tablet ONE (11:17)
[2024-04-03] MEDS ORDERED: Phenazopyridine HCl 100 MG TAB ONE ×2 (11:18→11:34)
== END 2024-04-03 14:23 | disposition home or self-care (01) ==
LOC: SDC 05:47
PROVIDERS: ATTEND Urology
PROC: 0VT90ZZ Resection of Right Testis, Open Approach (ICD-10-PCS; principal; 2024-04-03)
DX: C62.91 Malignant neoplasm of right testis, unspecified whether descended or undescended (principal); N50.89 Other specified disorders of the male genital organs; N20.0 Calculus of kidney; N28.1 Cyst of kidney, acquired; N40.0 Benign prostatic hyperplasia without lower urinary tract symptoms; N52.9 Male erectile dysfunction, unspecified; I10 Essential (primary) hypertension; I87.2 Venous insufficiency (chronic) (peripheral); I25.10 Atherosclerotic heart disease of native coronary artery without angina pectoris; E03.9 Hypothyroidism, unspecified; F32.A Depression, unspecified; F41.9 Anxiety disorder, unspecified; G89.29 Other chronic pain; J44.9 Chronic obstructive pulmonary disease, unspecified; M47.27 Other spondylosis with radiculopathy, lumbosacral region; K21.9 Gastro-esophageal reflux disease without esophagitis; Z98.52 Vasectomy status; Z86.73 Personal history of transient ischemic attack (TIA), and cerebral infarction without residual deficits; Z87.891 Personal history of nicotine dependence; Z95.5 Presence of coronary angioplasty implant and graft; Z90.49 Acquired absence of other specified parts of digestive tract; Z90.89 Acquired absence of other organs; Z88.8 Allergy status to other drugs, medicaments and biological substances; Z91.048 Other nonmedicinal substance allergy status; Z79.890 Hormone replacement therapy; Z79.51 Long term (current) use of inhaled steroids; Z79.01 Long term (current) use of anticoagulants; Z79.1 Long term (current) use of non-steroidal anti-inflammatories (NSAID); Z79.899 Other long term (current) drug therapy
CPT/HCPCS: 54530; 85610; 85730; A6258; J0665; J0696; J1100; J1642; J2250; J2405; J2704; 88305; 88309

== ENCOUNTER 2024-04-25 14:34 | Outpatient (CLI) | payer MEDICARE, MEDICAID | END 2024-04-25 14:35 | disposition home or self-care (01) | LOC: BICCT 14:34 → BICRAD 14:35 | PROVIDERS: ATTEND Urology | DX: N20.0 Calculus of kidney (principal); C62.91 Malignant neoplasm of right testis, unspecified whether descended or undescended | CPT/HCPCS: 36415; 71260; 74018; 82565 ==

== ENCOUNTER 2024-09-20 07:14 | Day surgery (SDC) | payer MEDICARE, MEDICAID ==
[2024-09-11 11:40] VITALS: BMI 29.5
[2024-09-20] MEDS ORDERED: Rocuronium Bromide 10 MG/ML (10ML VIAL) ONE (09:05)
[2024-09-20] MEDS ORDERED: PROPOFOL 20 ML ONE (09:05)
[2024-09-20] MEDS ORDERED: Lidocaine 2% PF 5 ML VIAL ONE (09:05)
[2024-09-20 09:09] LABS: INR-International Normal Ratio 1.3; Prothrombin Time 16.6 sec (12.0-14.7)
[2024-09-20 09:10] LABS: PTT 52.5 sec (22.9-36.1)
[2024-09-20] MEDS ORDERED: LevoFLOXacin D5W 500 mg (100 mL) BAG ONE (09:11)
[2024-09-20] MEDS ORDERED: Iopamidol 30 ML ONE (10:13)
[2024-09-20] MEDS ORDERED: fentaNYL PF 100 MCG/2 ML SYRINGE ONE (10:17)
[2024-09-20] MEDS ORDERED: SUGAMMADEX SODIUM 200 MG/2 ML VIAL ONE (10:29)
[2024-09-20] MEDS ORDERED: Ondansetron PF 4 MG/2 ML Vial ONE (10:58)
[2024-09-20] MEDS ORDERED: Dexamethasone 4 mg/ml Vial ONE (10:58)
[2024-09-20] MEDS ORDERED: ePHEDrine Sulfate 50 MG/10 ML VIAL ONE (11:10)
[2024-09-20] MEDS ORDERED: Phenazopyridine HCl 100 MG TAB ONE (12:49)
[2024-09-20] MEDS ORDERED: Tamsulosin HCl 0.4 MG CAP ONE (12:49)
[2024-09-20] MEDS ORDERED: Morphine 2 MG/ML VIAL ONE (14:24)
[2024-09-28 19:14] LABS: CA Oxalate Dihydrate 20 % (.); CA Oxalate Monohydrate 80 % (.); Color Tan (.); Stone Weight 60 mg (.)
== END 2024-09-20 15:40 | disposition home or self-care (01) ==
LOC: SDC 07:14
PROVIDERS: ATTEND Urology
PROC: 0TC18ZZ Extirpation of Matter from Left Kidney, Via Natural or Artificial Opening Endoscopic (ICD-10-PCS; principal; 2024-09-20)
PROC: 0T778DZ Dilation of Left Ureter with Intraluminal Device, Via Natural or Artificial Opening Endoscopic (ICD-10-PCS; 2024-09-20)
DX: N20.0 Calculus of kidney (principal); N45.2 Orchitis; N28.1 Cyst of kidney, acquired; N52.9 Male erectile dysfunction, unspecified; N50.0 Atrophy of testis; N40.1 Benign prostatic hyperplasia with lower urinary tract symptoms; R35.0 Frequency of micturition; C62.91 Malignant neoplasm of right testis, unspecified whether descended or undescended; I10 Essential (primary) hypertension; I87.2 Venous insufficiency (chronic) (peripheral); E03.9 Hypothyroidism, unspecified; G24.3 Spasmodic torticollis; J44.9 Chronic obstructive pulmonary disease, unspecified; M47.27 Other spondylosis with radiculopathy, lumbosacral region; D75.1 Secondary polycythemia; F11.20 Opioid dependence, uncomplicated; F12.90 Cannabis use, unspecified, uncomplicated; Z86.73 Personal history of transient ischemic attack (TIA), and cerebral infarction without residual deficits; Z98.52 Vasectomy status; Z87.891 Personal history of nicotine dependence; Z90.49 Acquired absence of other specified parts of digestive tract; Z88.8 Allergy status to other drugs, medicaments and biological substances; Z88.6 Allergy status to analgesic agent; Z91.048 Other nonmedicinal substance allergy status; Z79.01 Long term (current) use of anticoagulants; Z79.899 Other long term (current) drug therapy
CPT/HCPCS: 74018; 74420; 82365; 85610; 85730; C1747; C1758; C1769 ×2; C2617; C9761; J1100; J1642; J1956; J2272; J2405; J2704; Q9967; 88300

== ENCOUNTER 2025-02-16 09:05 | Outpatient (CLI) | payer MEDICARE, MEDICAID ==
[2025-02-16 09:43] LABS: Estimated GFR - POC 51.0
[2025-02-16] MEDS ORDERED: Iopamidol 370 76% 100 ML VIAL ONE (13:46)
== END 2025-02-16 09:06 | disposition home or self-care (01) ==
LOC: CT 09:05
PROVIDERS: ATTEND Urology
DX: C62.91 Malignant neoplasm of right testis, unspecified whether descended or undescended (principal); E29.1 Testicular hypofunction; K76.0 Fatty (change of) liver, not elsewhere classified; N20.0 Calculus of kidney; Z96.0 Presence of urogenital implants
CPT/HCPCS: 36415; 71046; 74178; 80048; 81001; 82105; 82565 ×2; 82670; 83002; 84270; 84403; 84702; 85025; 87086; G0103; J1642; Q9967